=== PATIENT | female | born 1950 | race Caucasian/White ===

== ENCOUNTER 2017-02-11 13:39 | Emergency (ER) | payer OTHER ==
[~2017-02-11] VITALS: Ht 172.7 cm; Wt 105.7 kg
--- NOTE | ~2017-02-11 | EKG ---
[address] [address] ELECTROCARDIOGRAM REPORT Name: RADHA VELASCO Room #: DEP [facility]#: [id number] Admission: 02/11/17 Attend Phys: Discharge: 02/11/17 Date of : 46 Report #: [id number] THIS REPORT FOR: //name// [facility] ED Test Date: 2017-02-11 Test Time: 14:57:54 Pat Name: RADHA VELASCO Department: Room: Gender: F Meeting/Event Planner: PENNY : 1950 Requested By: Priya Bee Order Number: [id number] MD: Kennedy Mayer Measurements Intervals [place] Rate: 62 P: -8 KS: 222 QRS: 35 QRSD: 114 T: 33 QT: 443 QTc: 450 Interpretive Statements Sinus rhythm Prolonged KS interval Borderline intraventricular conduction delay Compared to ECG 03/29/2014 07:46:31 First degree AV block now present ST (T wave) deviation no longer present Electronically Signed On 02-15-2017 21:52:39 CDT by Kennedy Mayer [email or web address] <ELECTRONICALLY SIGNED> By: Kennedy Mayer MD 02/15/17 2152 1457 1457 Kennedy Mayer MD /[facility]
[~2017-02-11 13:39] MED LIST: ASPIRIN325 PO; B COMPLETE1 EAC1 PO; CALCIUM 600 +1 EAC1 PO; CARDIZEM CD 18180 M3 PO; CARDIZEM CD240 MG PO; CENTRUM SILVER1 EAC4 PO; COZAAR100 MG PO; FLECAINIDE ACE100 MG PO; HYDROCHLOROTHIA25 M2 PO; HYDROCODONE-APA1 TA1 PO; LORTAB 10 MG-3473 ML PO; MILK OF MA2400 MG/10 PO; NAPROSYN500 MG PO; UNICOMPLEX M TA1 TA1; UNICOMPLEX M TA1 TA1 PO; VITAMIN B-121000 MCG PO; VITAMIN D31000 UNI2 PO; VITAMINC500 PO; ZOFRAN ODT4 M1 PO
[2017-02-11] MEDS ORDERED: MAGOX 400400 MG PO (13:47)
[2017-02-11] MEDS ORDERED: POTASSIUM CHLO20 ME1 PO (13:47)
[2017-02-11 15:06] LABS: ABSOLUTE NEUTROPHILS 3.8 thou/uL (1.4-8.2); EOSINOPHILS 4.4 % (0.0-3.0); HEMATOCRIT 37.4 % (37.0-47.0); HEMOGLOBIN 12.9 gm/dL (12.0-15.0); LYMPHOCYTES 20.1 % (24.0-44.0); MANUAL DIFF NO; MCH 29.4 pg (26.0-34.0); MCHC 34.5 g/dL (28.0-37.0); MCV 85.3 fL (80.0-100.0); MONOCYTES 10.5 % (1.0-8.0); PLATELET COUNT 305 thou/uL (150-400); RBC 4.38 mil/uL (4.20-5.00); RDW 13.9 % (10.5-14.5); WBC 5.9 thou/uL (4.0-11.0)
[2017-02-11 15:13] LABS: CALCIUM 9.3 mg/dL (8.5-10.1); CREATININE 1.2 mg/dL (0.6-1.0)
== END 2017-02-11 17:34 | disposition home or self-care (01) ==
LOC: ER 13:39
PROVIDERS: Emergency Medicine
DX: E87.1 Hypo-osmolality and hyponatremia (principal); I10 Essential (primary) hypertension; I48.91 Unspecified atrial fibrillation; Z90.710 Acquired absence of both cervix and uterus; Z90.49 Acquired absence of other specified parts of digestive tract; Z98.890 Other specified postprocedural states; Z79.82 Long term (current) use of aspirin; Z88.5 Allergy status to narcotic agent; Z87.891 Personal history of nicotine dependence

== ENCOUNTER 2017-09-01 21:51 | Emergency (ER) | payer OTHER ==
[~2017-09-01] VITALS: Ht 172.7 cm; Wt 104.3 kg
[~2017-09-01 21:51] MED LIST changes: +MAGOX 400400 MG PO; +POTASSIUM CHLO20 ME1 PO; -UNICOMPLEX M TA1 TA1
[2017-09-02] MEDS ORDERED: HYDROCODONE-AP1 EAC6 PO
[2017-09-02] MEDS ORDERED: SENNA8.6 MG PO (00:02)
[2017-09-02] MEDS ORDERED: ZOFRAN ODT4 M1 PO (01:20)
[2017-09-02 01:35] VITALS: BP 100/63
[2017-09-17] MEDS ORDERED: HAIR, SKIN & N1 EAC2 PO (14:53)
[2018-03-05] MEDS ORDERED: HYDROCODONE-AP1 EAC6 PO (13:59)
== END 2017-09-02 01:38 | disposition home or self-care (01) ==
LOC: ER 21:51
DX: S42.212A Unspecified displaced fracture of surgical neck of left humerus, initial encounter for closed fracture (principal); Z90.49 Acquired absence of other specified parts of digestive tract; Z90.710 Acquired absence of both cervix and uterus; I10 Essential (primary) hypertension; Z90.89 Acquired absence of other organs; Z88.5 Allergy status to narcotic agent; Z87.891 Personal history of nicotine dependence; W01.0XXA Fall on same level from slipping, tripping and stumbling without subsequent striking against object, initial encounter; Y93.89 Activity, other specified; Y92.89 Other specified places as the place of occurrence of the external cause; Y99.8 Other external cause status; I48.91 Unspecified atrial fibrillation

== ENCOUNTER 2017-09-18 05:26 | Day surgery (SDC) | payer OTHER ==
[2017-09-18] VITALS (7 sets, daily range): BP systolic 90–160; BP diastolic 50–90
[~2017-09-18] VITALS: Ht 172.7 cm; Wt 108.9 kg
--- NOTE | ~2017-09-18 | O ---
[facility] [place] [address] OPERATIVE REPORT Name: RADHA VELASCO Room #: DEP [facility] MWalter.#: [id number] Admission: 09/18/17 Attend Phys: Ra Joshua Discharge: 09/20/17 Date of : 46 Report #: [id number] THIS REPORT FOR: //name// CC: Cecil Walters DATE OF SERVICE: 09/18/2017 PREOPERATIVE DIAGNOSIS: Left proximal humerus fracture, displaced. POSTOPERATIVE DIAGNOSIS: Left proximal humerus fracture, displaced. PROCEDURE PERFORMED: Open reduction and internal fixation of left proximal humerus fracture with allograft bone grafting. SURGEON: Ra Walters M.D. REPLENISHMENT BUYER: Deja Ruiz PA-C ANESTHESIA: General with preoperative ultrasound-guided interscalene block. FLUIDS: 1500 mL crystalloid. ESTIMATED BLOOD LOSS: Approximately 150 mL. IMPLANTS UTILIZED: Synthes proximal humeral locking plate. DESCRIPTION OF PROCEDURE: After proper identification of the patient and operative site in preoperative holding area, the operative site was signed by myself. Prophylactic antibiotics given. The patient elected to receive an interscalene block after reviewing the risks, benefits, alternatives and potential complications with anesthesia. After a satisfactory block, the patient was brought back to the operative suite. After induction of satisfactory general anesthesia, the patient was carefully positioned in beach chair with head of bed elevated approximately 40 degrees. Left shoulder was sterilely prepped and draped in the usual manner. Final skin draping was with Ioban. A [employer] limb positioning system was utilized throughout the entire procedure. Anterior deltopectoral approach was planned. Skin was incised sharply. Full thickness skin flaps were developed. Cephalic vein was identified and retracted laterally. Subdeltoid space was carefully exposed. Large hematoma was evacuated. Soft tissue was removed from the fracture site and the humeral head was reduced relative to the shaft. 30 mL of allograft cancellous cubes were carefully impacted into the fracture site and a Synthes proximal humeral locking plate was provisionally secured with a single cortical screw as well as K wires [address] [address] OPERATIVE REPORT Name: RADHA VELASCO Room #: DEP [facility] M.R.#: [id number] Admission: 09/18/17 Attend Phys: Ra Joshua Discharge: 09/20/17 Date of : 46 Report #: [id number] into the humeral head to verify satisfactory hardware placement as well as fracture alignment. Intraoperative C-arm verified the satisfactory reduction and hardware placement. At this point, five locking screws were placed within the head proximally. Care was taken to ensure that they were all extraarticular and a total of 6 cortices of fixation was achieved distally. The repair construct was stable with gentle rotation. AP and lateral radiographs revealed satisfactory reduction and hardware placement. Wound was thoroughly irrigated with normal saline. One gram vancomycin powder was utilized, half of this was placed deep, half of it within the subcutaneous closure. Deltopectoral interval was closed with #1 Vicryl, 2-0 Vicryl, the subcutaneous tissues followed by running Monocryl stitch. Sterile dressing was applied. Qualified special education educational assistant utilized throughout the entire procedure to aid in patient limb positioning, visualization and retraction of the soft tissues, instrument passage, closure and sling and dressing application. The patient will be immobilized in a sling approximately 4 weeks postoperatively. <ELECTRONICALLY SIGNED> By: Ra Walters MD 09/23/17 0729 1522 1737 Ra Walters MD /nt
[~2017-09-18 05:26] MED LIST changes: +HAIR, SKIN & N1 EAC2 PO; +HYDROCODONE-AP1 EAC6 PO; +SENNA8.6 MG PO
[2017-09-19] VITALS: BP 97/75
[2017-09-19 04:38] VITALS: BP 124/71
[2017-09-19 06:29] LABS: HEMATOCRIT 26.5 % (37.0-47.0); HEMOGLOBIN 9.2 gm/dL (12.0-15.0)
[2017-09-19 06:45] LABS: POTASSIUM 4.2 mmol/L (3.5-5.1)
[2017-09-19 07:30] VITALS: BP 112/55
[2017-09-19 13:40] VITALS: BP 112/55
[2017-09-19 15:36] LABS: CALCIUM 8.5 mg/dL (8.5-10.1); CREATININE 1.1 mg/dL (0.6-1.0); POTASSIUM 3.9 mmol/L (3.5-5.1)
[2017-09-19 16:14] VITALS: BP 112/49
[2017-09-19 19:20] VITALS: BP 125/65
[2017-09-20 00:10] VITALS: BP 121/48
[2017-09-20 03:35] VITALS: BP 103/59
[2017-09-20 04:00] LABS: CALCIUM 8.3 mg/dL (8.5-10.1); CREATININE 1.1 mg/dL (0.6-1.0)
[2017-09-20 07:35] VITALS: BP 107/55
[2018-03-05] MEDS ORDERED: HYDROCODONE-AP1 EAC6 PO (13:59)
== END 2017-09-20 14:45 | disposition home or self-care (01) ==
LOC: OR 05:26 → 4N 17:37 → OR 09-20 14:45
PROVIDERS: Hospitalist; Physician Assistant Surgical
DX: S42.202A Unspecified fracture of upper end of left humerus, initial encounter for closed fracture (principal); X58.XXXA Exposure to other specified factors, initial encounter; Y93.9 Activity, unspecified; Y92.89 Other specified places as the place of occurrence of the external cause; Y99.9 Unspecified external cause status

== ENCOUNTER 2018-08-17 08:10 | Emergency (ER) | payer OTHER ==
[~2018-08-17] VITALS: Ht 172.7 cm; Wt 113.4 kg
[~2018-08-17 08:10] MED LIST changes: -FLECAINIDE ACE100 MG PO; +FLECAINIDE ACET50 M1 PO
[2018-08-17] MEDS ORDERED: ULTRAM 50MG TAB50 MG PO (09:16)
[2018-08-17] MEDS ORDERED: MEDROLDOSEPACK PO (09:16)
[2018-08-17] MEDS ORDERED: MOBIC7.5 MG PO (09:16)
[2018-08-17] MEDS ORDERED: NAPROSYN500 MG PO (09:19)
[2018-08-17 09:48] VITALS: BP 162/90
== END 2018-08-17 09:50 | disposition home or self-care (01) ==
LOC: ER 08:10
DX: M54.16 Radiculopathy, lumbar region (principal); I10 Essential (primary) hypertension; I48.91 Unspecified atrial fibrillation; G47.30 Sleep apnea, unspecified; Z90.710 Acquired absence of both cervix and uterus; Z90.89 Acquired absence of other organs; Z90.49 Acquired absence of other specified parts of digestive tract; Z87.891 Personal history of nicotine dependence; Z91.048 Other nonmedicinal substance allergy status; Z88.5 Allergy status to narcotic agent

== ENCOUNTER 2018-08-27 16:18 | Emergency (ER) | payer OTHER ==
[~2018-08-27] VITALS: Ht 172.7 cm; Wt 104.3 kg
[~2018-08-27 16:18] MED LIST changes: +MEDROLDOSEPACK PO; +MOBIC7.5 MG PO; +ULTRAM 50MG TAB50 MG PO
[2018-08-27 16:19] VITALS: BP 133/83
== END 2018-08-27 17:14 | disposition home or self-care (01) ==
LOC: ER 16:18
DX: R53.1 Weakness (principal); I10 Essential (primary) hypertension; I48.91 Unspecified atrial fibrillation; G47.30 Sleep apnea, unspecified; Z90.710 Acquired absence of both cervix and uterus; Z90.89 Acquired absence of other organs; Z90.49 Acquired absence of other specified parts of digestive tract; Z96.651 Presence of right artificial knee joint; Z87.891 Personal history of nicotine dependence; Z91.048 Other nonmedicinal substance allergy status; Z88.5 Allergy status to narcotic agent

== ENCOUNTER → 2018-10-18 | Outpatient (CLI) | payer OTHER ==
[~2018-10-18] VITALS: Ht 172.7 cm; Wt 113.4 kg
[~2018-10-18] MED LIST changes: +TYLENOL EXTRA500 MG PO
--- NOTE | ~2018-10-18 | HPC ---
[facility] [place] [address] PAIN MANAGEMENT CONSULTATION Name: RADHA VELASCO Room #: REG [facility].#: [id number] Admission: 10/18/18 ������������������ Attend Phys: Juan Shen MD Discharge: ������������������ Date of : 46 Report #: [id number] THIS REPORT FOR: //name// CC: Cecil Shen DATE OF SERVICE: 10/18/2018 CHIEF COMPLAINT: Pain in the low back radiating into the left leg. HISTORY OF PRESENT ILLNESS: This is a pleasant 68-year-old who was seen by Dr. Cavazos and referred to our clinic for evaluation of radiculopathy. She has pain mostly in the left side of her back, but it is now somewhat radiating to the right. It radiates in a classic distribution in the L3-L4 distribution into her leg. This correlates nearly exactly with findings seen in her MRI scan. She has evidence of a left paracentral disk herniation migrating superiorly at L3-L4 with lateral recess narrowing. This would explain symptoms radiating into the L3-L4 distribution. She is here today for a lumbar epidural steroid injection at the request of Dr. Cavazos's team. Pain score today is an 8-9/10, cramping, shooting and burning. MEDICATIONS: Diltiazem, flecainide, losartan, potassium, aspirin, meloxicam, Tylenol, calcium, vitamin B12. ALLERGIES: MORPHINE IS POORLY TOLERATED. PAST MEDICAL HISTORY: Hypertension, coronary artery disease, atrial fibrillation which was treated by aspirin. She has a history of knee replacement in 2008. She has had injury to her Achilles tendon and has had a hysterectomy in the past. SOCIAL HISTORY: Denies tobacco and alcohol use. 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 REVIEW OF SYSTEMS: Positive for cataracts, which have been treated surgically. She has coronary artery disease, nocturia. She denies chest pain or angina. PHYSICAL EXAMINATION: GENERAL: Pleasant female, in no acute distress. VITAL SIGNS: Blood pressure is 135/85, heart rate 76, respirations 18. Her BMI is listed at 38.0. [facility] [address] [place] [address] PAIN MANAGEMENT CONSULTATION Name: RADHA VELASCO Room #: REG [facility]#: [id number] Admission: 10/18/18 ������������������ Attend Phys: Juan Shen MD Discharge: ������������������ Date of : 46 Report #: [id number] CHEST: Clear. CARDIAC: Rhythm was regular today. ABDOMEN: Reveals no masses and no tenderness. MUSCULOSKELETAL: Mild discomfort across the lumbosacral spine. Range of motion is good in flexion. Extension reproduces radiating pain into the left leg. Straight leg raising is positive on the left leg in the L4 distribution. Sensation is diminished slightly in this distribution as well. No focal weakness is appreciated. Deep tendon reflexes were symmetrically depressed at the knees and ankles. IMPRESSION: Low back pain with L4 radiculopathy secondary to L3-L4 disk herniation. RECOMMENDATIONS: L3-L4 epidural steroid injection under fluoroscopic guidance. PROCEDURE: She was taken to fluoroscopic suite, placed prone. Skin prepped with ChloraPrep. Skin anesthetized over the L3-L4 interspace to the left of midline. A 20-gauge Tuohy epidural needle advanced first attempt in the epidural space with loss of resistance. No blood nor CSF was aspirated. 1 mL of Omnipaque injected. Good spread of dye observed in the epidural space followed by 3 mL of 0.5% lidocaine with 80 mg of triamcinolone. She tolerated the procedure well. She was observed for 45 minutes and discharged. Follow up as needed. ��������������������������������������������� ���������������������������������������� By: ��������������������������������������������� 1333 2354 Juan Shen MD /nt
[2018-10-18 14:02] VITALS: BP 137/85
--- NOTE | 2018-10-18 14:22 | NUR ---
Pain Clinic Assessment: 1. History of Osteoarthritis: History of Rheumatoid Arthritis: 2. Height: 5 ft. 8 in. 172.7 cm. Weight: 250.0 lb. oz. 113.400 kg. Patient's BMI: 38.0 3. Vital Signs: BP: 137/85 Pulse: 76 Resp: 18 Temp: 02 Sat: 100 ECG Mon: 4. Pain Intensity: 8-9 5. Fall Risk: Dizziness: N Needs help standing or walking: N Fallen in the last 3 months: N Fall risk comments: 6. Patient on Blood Thinner: None 7. History of Hypertension: Y 8. Opioid Therapy greater than 6 weeks: N Opiate Contract Signed: 9. Risk Assessment Tool Provided: LOW 10. Functional Assessment Tool: 11. Recreational Drug Use: Never Drug Type: Tobacco Use: Never Smoker Tobacco Type: Amount or Packs/day: How Many Years: Alcohol Use: No Frequency: Quant:
== END | disposition home or self-care (01) ==
LOC: PAIN 07:07
DX: M51.16 Intervertebral disc disorders with radiculopathy, lumbar region (principal); G89.29 Other chronic pain; I10 Essential (primary) hypertension; I25.10 Atherosclerotic heart disease of native coronary artery without angina pectoris; I48.91 Unspecified atrial fibrillation; Z96.659 Presence of unspecified artificial knee joint; Z79.899 Other long term (current) drug therapy; Z98.890 Other specified postprocedural states; Z90.710 Acquired absence of both cervix and uterus; Z79.01 Long term (current) use of anticoagulants

== ENCOUNTER → 2018-11-15 | Outpatient (CLI) | payer OTHER ==
[~2018-11-15] VITALS: Ht 172.7 cm; Wt 114.9 kg
--- NOTE | ~2018-11-15 | HPC ---
[facility] [place] [address] PAIN MANAGEMENT CONSULTATION Name: RADHA VELASCO [id number] Admission: 11/15/18 ������������������ Attend Phys: Juan Shen MD Discharge: ������������������ Date of : 46 Report #: [id number] THIS REPORT FOR: //name// CC: KYLE Shen DATE OF SERVICE: 11/15/2018 Followup visit for chronic low back pain with radiculopathy. The patient returns to pain clinic today for epidural injection. She had 90% improvement for the first 3 weeks following her first injection. Pain is now gradually returning, but is still markedly better than her presentation 1 month ago. We discussed her MRI findings. She should respond and we are hopeful that she will have continued improvement as the disk continues to mold and resorb and scar in place without radiculopathy. Questions were asked and answered about her prognosis. I am hopeful that she will not require surgery at this point given her good response. Her current and past medical histories have not changed other than the improvement in pain. PHYSICAL EXAMINATION: She is 5 feet 8 inches, 253 pounds, BMI is 38.5. Her blood pressure is 136/79, heart rate 77. Her pain intensity is 2/10. She moves from sitting to standing position, walks with much more stable gait. She has positive straight leg raising, but is much milder in the left leg and the L4-L5 distribution. No focal weakness is noted. Bilateral depression of the deep tendon reflexes noted. IMPRESSION: Low back pain with L4 radiculopathy on the left. RECOMMENDATIONS: Repeat epidural injection under fluoroscopic guidance. DESCRIPTION OF PROCEDURE: She was taken to fluoroscopic suite, placed prone, skin prepped with ChloraPrep. Skin anesthetized over L4-L5. A 20-gauge Tuohy epidural needle advanced first attempt in the epidural space with loss of resistance. There was no blood or CSF aspirated. 1 mL of Omnipaque was injected. Good spread of dye observed in the epidural space followed by 3 mL of 0.5% lidocaine. She tolerated the procedure well. [address] [address] PAIN MANAGEMENT CONSULTATION Name: RADHA VELASCO ASIYAEugenia [facility] [id number] Admission: 11/15/18 ������������������ Attend Phys: Juan Shen MD Discharge: ������������������ Date of : 46 Report #: [id number] Pain was 0 in recovery room. She was observed for 30 minutes and discharged with a followup as needed. ��������������������������������������������� ���������������������������������������� By: ��������������������������������������������� 1734 0647 Juan Shen MD /nt
[2018-11-15 13:11] VITALS: BP 136/79
--- NOTE | 2018-11-15 13:29 | NUR ---
Pain Clinic Assessment: 1. History of Osteoarthritis: History of Rheumatoid Arthritis: 2. Height: 5 ft. 8 in. 172.7 cm. Weight: 253.4 lb. oz. 114.942 kg. Patient's BMI: 38.5 3. Vital Signs: BP: 136/79 Pulse: 77 Resp: 16 Temp: 02 Sat: 100 ECG Mon: 4. Pain Intensity: 2 5. Fall Risk: Dizziness: N Needs help standing or walking: N Fallen in the last 3 months: N Fall risk comments: 6. Patient on Blood Thinner: None 7. History of Hypertension: Y 8. Opioid Therapy greater than 6 weeks: N Opiate Contract Signed: 9. Risk Assessment Tool Provided: LOW 10. Functional Assessment Tool: 11. Recreational Drug Use: Never Drug Type: Tobacco Use: Never Smoker Tobacco Type: Amount or Packs/day: How Many Years: Alcohol Use: No Frequency: Quant:
== END | disposition home or self-care (01) ==
LOC: PAIN 07:06
DX: M54.16 Radiculopathy, lumbar region (principal); G89.29 Other chronic pain; Z79.899 Other long term (current) drug therapy; Z98.890 Other specified postprocedural states; Z79.82 Long term (current) use of aspirin

== ENCOUNTER → 2019-03-03 | Outpatient (CLI) | payer OTHER ==
[~2019-03-03] VITALS: Ht 172.7 cm; Wt 111.0 kg
[~2019-03-03] MED LIST changes: +FLEXERIL PO
--- NOTE | ~2019-03-03 | HPC ---
[facility] [place] [address] PAIN MANAGEMENT CONSULTATION Name: RADHA VELASCO Room #: REG [facility] Pearl.#: [id number] Admission: 03/03/19 ������������������ Attend Phys: Juan Shen MD Discharge: ������������������ Date of : 46 Report #: [id number] THIS REPORT FOR: //name// CC: KYLE Shen DATE OF SERVICE: 03/03/2019 Followup visit for L4 radiculopathy. The patient has responded favorably to 2 epidural injections. They have been spaced fairly evenly the first injection was on 10/18/2018. The second injection about a month later provided substantial relief for months. She is now almost 4 months since her last injection and the pain is returning once again. She has pain bilaterally. Her x-rays as noted from her initial visit show that there is evidence of paracentral disk herniation at L3-L4. It appeared to be migrating laterally, which was where her symptoms were earlier bit then the pain is now bilateral. This may continue to change somewhat as we try to avoid surgery with the use of injections. She has been counseled about exercise and physical therapy and continues to remain active. PQRS review is positive for osteoarthritis involving bilateral lower extremities. Her BMI is 37.2. The effects of weight in the continuation of chronic back pain were reviewed. Blood pressure is 149/88, heart rate 80. Pain intensity is 7-8/10. Pain is worse with standing and weightbearing. She is not a fall risk and has not fallen in the last 3 months. She denies use of blood thinner and is under treatment for hypertension with medications. Her entire medication list was reviewed and reconciled. Her blood pressure medications include diltiazem and Cozaar. Her only pain medication is meloxicam 7.5 mg daily as well as Tylenol. She denies use of opioids and does not use alcohol or tobacco. PHYSICAL EXAMINATION: VITAL SIGNS: As noted above. She is pleasant female. She moves from sitting to standing position. Her gait is antalgic. She has pain with forward flexion and extension of the lumbar spine. Bilateral straight leg raising today reproduces pain into the anterolateral thigh consistent with an L4 radiculopathy. IMPRESSION: 1. Lumbar radiculopathy with L3-L4 disk fragment. [address] [address] PAIN MANAGEMENT CONSULTATION Name: RADHA VELASCO Room #: REG [facility] Julian#: [id number] Admission: 03/03/19 ������������������ Attend Phys: Juan Shen MD Discharge: ������������������ Date of : 46 Report #: [id number] RECOMMENDATIONS: Epidural injection at L3-L4 under fluoroscopic guidance. PROCEDURE: She was taken to fluoroscopic suite for treatment, placed prone, skin prepped with ChloraPrep. Skin anesthetized over the L3-L4 interspace. A 20-gauge Tuohy epidural needle advanced in the epidural space with loss of resistance technique. There was no blood or CSF aspirated. A 1 mL of Omnipaque injected. Good spread of dye observed in the epidural space followed by 3 mL of 0.5% lidocaine mixed with 80 mg of triamcinolone. She tolerated the procedure well and was observed for 45 minutes and discharged. Followup visit planned as needed. ��������������������������������������������� ���������������������������������������� By: ��������������������������������������������� 1719 2351 Juan Shen MD /nt
[2019-03-03 14:19] VITALS: BP 149/88
--- NOTE | 2019-03-03 14:21 | NUR ---
Pain Clinic Assessment: 1. History of Osteoarthritis: Left Lower Extremity Right Lower Extremity History of Rheumatoid Arthritis: 2. Height: 5 ft. 8 in. 172.7 cm. Weight: 244.8 lb. oz. 111.041 kg. Patient's BMI: 37.2 3. Vital Signs: BP: 149/88 Pulse: 80 Resp: 16 Temp: 02 Sat: 92 ECG Mon: 4. Pain Intensity: 7-8 5. Fall Risk: Dizziness: N Needs help standing or walking: N Fallen in the last 3 months: N Fall risk comments: 6. Patient on Blood Thinner: None 7. History of Hypertension: Y 8. Opioid Therapy greater than 6 weeks: N Opiate Contract Signed: 9. Risk Assessment Tool Provided: LOW 10. Functional Assessment Tool: 11. Recreational Drug Use: Never Drug Type: Tobacco Use: Never Smoker Tobacco Type: Amount or Packs/day: How Many Years: Alcohol Use: No Frequency: Quant:
== END | disposition home or self-care (01) ==
LOC: PAIN 06:48
DX: M54.16 Radiculopathy, lumbar region (principal); G89.29 Other chronic pain; I10 Essential (primary) hypertension; M19.90 Unspecified osteoarthritis, unspecified site; Z79.899 Other long term (current) drug therapy; Z98.890 Other specified postprocedural states; Z79.82 Long term (current) use of aspirin; Z88.8 Allergy status to other drugs, medicaments and biological substances

== ENCOUNTER → 2019-05-02 | Outpatient (CLI) | payer OTHER ==
[~2019-05-02] VITALS: Ht 172.7 cm; Wt 110.0 kg
[2019-05-02 12:49] VITALS: BP 131/85
--- NOTE | 2019-05-02 13:06 | NUR ---
Pain Clinic Assessment: 1. History of Osteoarthritis: Left Lower Extremity Right Lower Extremity History of Rheumatoid Arthritis: 2. Height: 5 ft. 8 in. 172.7 cm. Weight: 242.6 lb. oz. 110.043 kg. Patient's BMI: 36.9 3. Vital Signs: BP: 131/85 Pulse: 77 Resp: 16 Temp: 02 Sat: 100 ECG Mon: 4. Pain Intensity: 2 5. Fall Risk: Dizziness: N Needs help standing or walking: N Fallen in the last 3 months: N Fall risk comments: 6. Patient on Blood Thinner: None 7. History of Hypertension: Y 8. Opioid Therapy greater than 6 weeks: N Opiate Contract Signed: 9. Risk Assessment Tool Provided: LOW 10. Functional Assessment Tool: 11. Recreational Drug Use: Never Drug Type: Tobacco Use: Never Smoker Tobacco Type: Amount or Packs/day: How Many Years: Alcohol Use: No Frequency: Quant:
--- NOTE | 2019-05-12 16:52 | HPC ---
[facility] [place] [address] [address] PAIN MANAGEMENT CONSULTATION Name: RADHA VELASCO Room #: REG [facility] Pearl.#: [id number] Admission: 05/02/19 Attend Phys: Juan Shen MD Discharge: Date of : 46 Report #: [id number] THIS REPORT FOR: //name// CC: Cecil Shen DATE OF SERVICE: 05/02/2019 Followup visit for lumbar radiculopathy. The patient has responded nicely to epidural injections performed twice over the course of the last 5 months. She has a left paracentral herniation migrating superiorly at L3-L4 with lateral recess narrowing. This explains her left L4 radicular symptoms. She is much better than she was when we first initiated therapy earlier back in November of this year. She has an upcoming trip planned to [place] as she will be driving in a car for several days. She is here today for another epidural injection. PQRS REVIEW: 1. History of osteoarthritis involving hips and knees bilaterally and some chronic pain. 2. BMI of 36.9. 3. Vital signs: Blood pressure 131/85, heart rate 77. 4. Pain intensity is 2 today as high as 5 at its worst. 5. She is not a fall risk. 6. No blood thinning medications. 7. She is on hypertensive treatment and all medications were reviewed and reconciled including the antihypertensive diltiazem, which she takes with good success. She is also on Cozaar. 8. She takes no opioids. 9. She has completed an opioid risk tool scoring a low score. 10. Functional assessment score is 23/70. 11. She denies use of tobacco and also denies use of alcohol. PHYSICAL EXAMINATION: As above. She has pain across her low back, mild straight leg raising into the left leg following the L3-L4 distribution. Sensation is intact. There is no focal weakness. Deep tendon reflexes are diminished bilaterally. IMPRESSION: Low back pain and radiculopathy secondary to herniated nucleus pulposus, L3-L4. RECOMMENDATION: Epidural steroid injection under fluoroscopic guidance. [address] [address] PAIN MANAGEMENT CONSULTATION Name: RADHA VELASCO Room #: REG [facility] Julian#: [id number] Admission: 05/02/19 Attend Phys: Juan Shen MD Discharge: Date of : 46 Report #: [id number] PROCEDURE: She was taken to fluoroscopic suite, placed prone, skin prepped with ChloraPrep. Skin anesthetized over the L3-L4 interspace. Using biplanar fluoroscopic views, I advanced needle into the epidural space using loss of resistance. There was no blood or CSF aspirated. A 1 mL of Omnipaque injected. Good spread of dye observed in the epidural space followed by 3 mL of 0.5% lidocaine mixed with 80 mg of triamcinolone. She tolerated the procedure well and was observed for 45 minutes and discharged. Follow up as needed. <ELECTRONICALLY SIGNED> By: Juan Shen MD 05/12/19 1652 1725 0637 Juan Sehn MD /nt
== END | disposition home or self-care (01) ==
LOC: PAIN 06:52
DX: M51.16 Intervertebral disc disorders with radiculopathy, lumbar region (principal); M19.90 Unspecified osteoarthritis, unspecified site; Z88.8 Allergy status to other drugs, medicaments and biological substances; Z79.899 Other long term (current) drug therapy; Z79.82 Long term (current) use of aspirin

== ENCOUNTER 2019-10-13 11:50 | Day surgery (SDC) | payer OTHER ==
[~2019-10-13] VITALS: Ht 175.3 cm; Wt 108.9 kg
[~2019-10-13 11:50] MED LIST changes: +DILTIAZEM 24HR300 M2 PO; +MAGNESIUM250 MG PO
[2019-10-13 12:54] VITALS: BP 159/82
--- NOTE | 2019-10-13 16:45 | EKG ---
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
[2019-10-13 17:05] VITALS: BP 159/82
--- NOTE | 2019-10-17 17:07 | PATH ---
[facility] [address] [place] [address] PATHOLOGY RPT PROCEDURE Name: RADHA VELASCO Room #: DEP [facility] M.R.#: [id number] Admission: 10/13/19 Date of : 46 Discharge: 10/13/19 Report #: [id number] Path Case #: [id number] [facility] Accession Number: [id number] . 01 Material submitted: . wrist - LEFT WRIST TENOSYNOVECTOMY. Modifiers: left . 01 Clinical history: . Pain due to internal orthopedic prosthetic, implant, and grafts, initial encounter Other synovitis and tenosynovitis, unspecified hand . 02 Diagnosis: Synovium, left wrist, tenosynovectomy: - Fragments showing reactive synovial hyperplasia along with mild chronic inflammation. - Fragments of dense fibrous tissue associated with mild chronic inflammation and myxoid changes. (IUV:gilbert; 10/17/2019) QMS 10/17/2019 1429 Local . 02 Electronically signed: . Holly Douglas MD, Pathologist NPI- [id number] . 01 Gross description: . The specimen is received in formalin, labeled "Radha Velasco, left tenosynovectomy". The specimen is additionally labeled on the requisition as, "left wrist tenosynovectomy". Received are multiple segments of pale broussard fibrous soft tissue measuring 4.8 x 3.8 x 1.6 cm in aggregate dimensions. No distinct nodules or lesions are noted grossly. The specimen is submitted representatively in cassette A1. (CAA; 10/14/2019) QA/QA 10/14/2019 1339 Local . 02 Pathologist provided ICD-10: M65.9 . 02 CPT . 394157 Specimen Comment: A courtesy copy of this report has been sent to [phone] Specimen Comment: [phone] Specimen Comment: Report sent to / DR BEDOLLA Performed at: [address], [place] [id number] [place] [address] PATHOLOGY RPT PROCEDURE Name: RADHA VELASCO Room #: DEP [facility] M.R.#: [id number] Admission: 10/13/19 Date of : 46 Discharge: 10/13/19 Report #: [id number] Path Case #: [id number] MD Kendall Belcher MD Phone: [phone] Performed at: [address] [id number] MD Holly Douglas MD Phone: [phone]
--- NOTE | 2019-10-28 11:29 | O ---
[facility] [place] [facility] [place] [address] OPERATIVE REPORT Name: RADHA VELASCO Room #: [facility]..#: [id number] Admission: 10/13/19 Attend Phys: Mer Teixeira, Discharge: 10/13/19 Date of : 46 Report #: [id number] THIS REPORT FOR: cc: Cecil Tolentino MD Cecil James MD, FAAFP, FACEP,Mer Feliciano MD ~ CC: Cecil Teixeira DATE OF SERVICE: 10/13/2019 PREOPERATIVE DIAGNOSES: 1. Left retained volar distal radius plate. 2. Left flexor tenosynovitis. 3. Possible left flexor tendon ruptures. POSTOPERATIVE DIAGNOSES: 1. Left retained volar distal radius plate. 2. Left flexor tenosynovitis. 3. Left complete rupture of the index flexor digitorum profundus tendon. 4. Left complete rupture of the flexor digitorum superficialis tendon to the index. PROCEDURE PERFORMED: 1. Left volar distal radius plate removal, deep. 2. Left flexor tenosynovectomy. 3. Left index flexor digitorum superficialis reconstruction with allograft tendon. 4. Left index flexor digitorum profundus tendon reconstruction with allograft tendon. SURGEON: Mer Teixeira MD ANESTHESIA: General mask anesthesia. ESTIMATED BLOOD LOSS: Minimal. TOURNIQUET TIME: 120 minutes. COMPLICATIONS: None. CONDITION: Stable. DISPOSITION: Recovery room. IMPLANTS USED: Allograft tendon. [facility] [place] [address] OPERATIVE REPORT Name: RADHA VELASCO Room #: [facility]P [facility]..#: [id number] Admission: 10/13/19 Attend Phys: Mer Teixeira, Discharge: 10/13/19 Date of : 46 Report #: [id number] INDICATIONS: The patient is a 69-year-old female with the above-mentioned diagnosis. She elects for operative treatment. The risks, benefits, alternatives and complications were discussed including but not limited to stiffness, infection, damage to vessels or nerves, wound healing problems or worsening of any symptoms. Informed consent was obtained. The correct extremity was identified and labeled by myself after verbal confirmation of the patient as well as visual confirmation and signed informed consent. DESCRIPTION OF PROCEDURE: The patient was brought back to the OR and placed in the supine position. She received preoperative antibiotics. Tourniquet was placed over padding on the patient's left upper extremity. Left upper extremity was sterilely prepped and draped in the usual fashion. Final timeout was taken to verify correct patient, operative procedure, operative site, all concurred. The arm was elevated, exsanguinated and the tourniquet inflated. Next, prior volar incision was done over the FCR tendon. Dissection was carried down through skin and subcutaneous tissue with tenotomy scissors. The FCR sheath was identified. The subsheath was incised. Volar contents were retracted ulnarly. There was significant amount of inflammation around the tendons. The pronator quadratus was elevated off the plate. The plate was removed without difficulty. Any rough areas were debrided with a rongeur. Next, attention was placed to the tendons. The FPL tendon was noted to be moderately frayed. There was about 20% of it was frayed. The median nerve was identified and carefully protected. The incision was then extended over the carpal tunnel. Dissection was carried down through subcutaneous tissue with tenotomy scissors and the distal part of the incision, the transverse carpal ligament was transected proximally and distally. Careful attention was placed to avoiding damage to any sensory nerves. Next, a median nerve was carefully protected. The flexor tenosynovectomy was performed. There was a significant amount of inflammation around the flexor tendons. Next, the tendons were all evaluated carefully. The index FDP and FDS tendons were all found to be completely transected. The remaining tendons looked to be in good condition. Both the distal and proximal stumps were identified. Next, a tendon allograft was prepared on the backtable. The proximal and distal stumps of the FDP and FDS tendons were identified and each was reconstructed using a 3-4 Pulvertaft weave using 3-0 Supramid suture. They all glided smoothly. The tension was felt to be appropriate with the hand in a resting position. There was slight more flexion than typical to the reconstructed tendons. The finger was taken through passive range of motion and the tendons glided smoothly. Tenodesis showed intact tendons and appropriate movement. The wound was thoroughly irrigated. Nerve was evaluated and looked to be in excellent condition. The wound was thoroughly irrigated. Deep tissue was closed with 2-0 Vicryl and this was a pronator quadratus. The deep drain was placed. The skin was closed with 4-0 nylon suture. Wound was dressed with Adaptic and sterile gauze. The drain was affixed with an Op-Site. She was placed in a bulky dressing and a volar and dorsal slab splint with the wrist and fingers slightly flexed. All fingers were pink with brisk capillary refill at [address] [address] OPERATIVE REPORT Name: RADHA VELASCO [id number] Admission: 10/13/19 Attend Phys: Mer Teixeira, Discharge: 10/13/19 Date of : 46 Report #: [id number] the conclusion of case after deflation of tourniquet and after application of the dressing. All sponge and needle counts were correct. The patient was transferred to postoperative recovery room in stable condition. <ELECTRONICALLY SIGNED> By: Mer Teixeira MD 10/28/19 1129 1021 1110 Mer Teixeira MD /nt
== END 2019-10-13 18:15 | disposition home or self-care (01) ==
LOC: OR 11:50 → TBA 11:52 → OR 13:07
DX: S66.111A Strain of flexor muscle, fascia and tendon of left index finger at wrist and hand level, initial encounter (principal); M65.832 Other synovitis and tenosynovitis, left forearm; T84.84XA Pain due to internal orthopedic prosthetic devices, implants and grafts, initial encounter; I10 Essential (primary) hypertension; I48.91 Unspecified atrial fibrillation; G47.30 Sleep apnea, unspecified; Z87.891 Personal history of nicotine dependence; Z96.651 Presence of right artificial knee joint; Z90.49 Acquired absence of other specified parts of digestive tract; Z90.710 Acquired absence of both cervix and uterus; Z98.890 Other specified postprocedural states; Z79.899 Other long term (current) drug therapy; Z79.01 Long term (current) use of anticoagulants; Z98.41 Cataract extraction status, right eye; Z98.42 Cataract extraction status, left eye; X58.XXXA Exposure to other specified factors, initial encounter; Y93.89 Activity, other specified; Y92.89 Other specified places as the place of occurrence of the external cause; Y99.8 Other external cause status; Y83.8 Other surgical procedures as the cause of abnormal reaction of the patient, or of later complication, without mention of misadventure at the time of the procedure
CPT/HCPCS: 50010; 50101; 50386; 50825; 51736; 56526; 57006; 57091; 5716; 57178; 62110; 62900; 70005

== ENCOUNTER → 2019-11-03 | Outpatient (CLI) | payer OTHER ==
[~2019-11-03] VITALS: Ht 172.7 cm; Wt 111.4 kg
--- NOTE | ~2019-11-03 | HPC ---
[facility] [place] [address] PAIN MANAGEMENT CONSULTATION Name: RADHA VELASCO Room #: REG [facility].#: [id number] Admission: 11/03/19 Attend Phys: Juan Shen MD Discharge: Date of : 46 Report #: [id number] THIS REPORT FOR: cc: Cecil Tolentino MD, FAAFP, FACEP, Douglas MD FAAFP FACEP Morgan, Richard L. MD ~ CC: Cecil Shen DATE OF SERVICE: 11/03/2019 CHIEF COMPLAINT: Chronic and recurring lumbar radiculopathy with a left paracentral disk herniation L3-L4. The patient has responded very nicely over the course of the year to epidural injections for treatment of lumbar radiculopathy due to her herniated disk. She has been able to avoid surgery, which is one of her goals. She gets nearly 3 months of excellent pain relief from her injections. Her last injection was performed in June. She was doing quite well all the way through [place] and did not experience significant pain. In August, the pain began to return and has gradually now increased in severity. She is now "eating" Tylenol. She is taking it without much improvement. Most of her pain is radiating in the L2-L3 distribution into the left leg. She has some right leg pain as well. PQRS: Positive for osteoarthritis involving hips and knees bilaterally. BMI is 37.4 up from her last visit by about 3%. Blood pressure is 157/95, heart rate 70, respirations 18. She is on medication for hypertension and those were reviewed. Discussed the importance of remaining on them. Her pain intensity 7-8/10. She is not a fall risk. She denies use of blood thinner. She is not taking opioids from our clinic at this time, although she did get her prescription from ____ following surgery. She just had a recent hand surgery with cadaveric tendon transfer. Functional assessment score is 23/70. She remains active. She denies tobacco, but enjoys alcohol in a social setting with friends. PHYSICAL EXAMINATION: VITAL SIGNS: As noted. She moves independently from sitting to standing position, her gait is antalgic. She has tenderness across the lumbosacral segment, pain with forward flexion and extension. She has increasing pain into the left leg following an L3 distribution with straight leg raising. No weakness is noted. IMPRESSION: Lumbar radiculopathy. [address] [address] PAIN MANAGEMENT CONSULTATION Name: RADHA VELASCO Room #: REG CLI [facility]#: [id number] Admission: 11/03/19 Attend Phys: Juan Shen MD Discharge: Date of : 46 Report #: [id number] PROCEDURE: Epidural injection under fluoroscopic guidance. DESCRIPTION OF PROCEDURE: After informed consent, she was taken to fluoroscopic suite, placed prone, skin prepped with ChloraPrep. Skin anesthetized over the L3-L4 interspace. Using biplanar fluoroscopic views, I advanced needle into position in the epidural space. No blood or CSF was aspirated. A 1 mL of Omnipaque injected. Good spread of dye observed into the epidural space followed by 3 mL of 0.5% lidocaine mixed with 80 mg of triamcinolone. She tolerated the procedure well and was observed for 45 minutes and discharged. Follow up as needed. By: 1302 1309 Juan Shen MD /nt
[2019-11-03 10:10] VITALS: BP 157/95
--- NOTE | 2019-11-03 10:18 | NUR ---
Pain Clinic Assessment: 1. History of Osteoarthritis: Left Lower Extremity Right Lower Extremity History of Rheumatoid Arthritis: 2. Height: 5 ft. 8 in. 172.7 cm. Weight: 245.6 lb. oz. 111.404 kg. Patient's BMI: 37.4 3. Vital Signs: BP: 157/95 Pulse: 70 Resp: 18 Temp: 02 Sat: 99 ECG Mon: 4. Pain Intensity: 7-8 5. Fall Risk: Dizziness: N Needs help standing or walking: N Fallen in the last 3 months: N Fall risk comments: 6. Patient on Blood Thinner: None 7. History of Hypertension: Y 8. Opioid Therapy greater than 6 weeks: N Opiate Contract Signed: 9. Risk Assessment Tool Provided: LOW 10. Functional Assessment Tool: 11. Recreational Drug Use: Never Drug Type: Tobacco Use: Former Smoker Tobacco Type: Amount or Packs/day: How Many Years: Alcohol Use: Yes Frequency: Quant:
== END | disposition home or self-care (01) ==
LOC: PAIN 06:48
DX: M51.16 Intervertebral disc disorders with radiculopathy, lumbar region (principal); G89.29 Other chronic pain; M19.90 Unspecified osteoarthritis, unspecified site; Z87.891 Personal history of nicotine dependence; Z98.890 Other specified postprocedural states; Z79.899 Other long term (current) drug therapy; Z88.8 Allergy status to other drugs, medicaments and biological substances; Z79.82 Long term (current) use of aspirin